=== PATIENT | male | born 1985 | race Caucasian/White ===

== ENCOUNTER 2021-07-08 16:55 | Emergency (ER) | payer OTHER, MEDICAID ==
[~2021-07-08] VITALS: Ht 167.6 cm; Wt 128.4 kg
[2021-07-08 18:35] LABS: BASO # 0.1 x10^3/uL (0.0-0.2); BASO % 1 % (0-3); EOS # 0.3 x10^3/uL (0.0-0.7); EOS % 3 % (0-3); HEMATOCRIT 46.1 % (39.0-53.0); HEMOGLOBIN 15.8 g/dL (13.0-17.5); LYMPH # 1.8 x10^3/uL (1.0-4.8); LYMPH % 16 % (24-48); MEAN CORPUSCULAR HEMOGLOBIN 29 pg (25-35); MEAN CORPUSCULAR HGB CONC 34 g/dL (31-37); MEAN CORPUSCULAR VOLUME 86 fL (79-100); MONO # 0.7 x10^3/uL (0.0-1.1); MONO % 6 % (0-9); NEUT % 73 % (31-73); PLATELET COUNT 329 x10^3/uL (140-400); RED BLOOD COUNT 5.36 x10^6/uL (4.30-5.70); RED CELL DISTRIBUTION WIDTH 13.9 % (11.5-14.5); WHITE BLOOD COUNT 10.9 x10^3/uL (4.0-11.0)
--- NOTE | 2021-07-08 18:54 | RAD ---
INDICATION: Reason: Hypertensive emergency rule out endorgan damage / Spl. Instructions: / History: COMPARISON: None. TECHNIQUE: Axial CT images obtained through the head without intravenous contrast. One or more of the following individualized dose reduction techniques were utilized for this examinat ion: 1. Automated exposure control; 2. Adjustment of the mA and/or kV according to patient size; 3 . Use of iterative reconstruction technique. FINDINGS: No intracranial hemorrhage. No significant midline shift. Ventricles and sulci are unremarkable. No acute osseous abnormality. IMPRESSION: * No acute intracranial hemorrhage. Electronically signed by: David Alberts MD (07/08/2021 6:52 PM) [id number]
[2021-07-08 18:57] LABS: CALCIUM 9.1 mg/dL (8.5-10.1); CREATININE 1.1 mg/dL (0.7-1.3); GFR 76.6; POTASSIUM 4.1 mmol/L (3.5-5.1)
--- NOTE | 2021-07-08 18:59 | RAD ---
XR CHEST 1V History: Reason: Hypertensive emergency rule out endorgan damage / Spl. Instructions: / History: Comparison: None. Findings: No consolidation or pleural effusion. Normal heart size. No pneumothorax. Impression: 1. No acute cardiopulmonary process. Electronically signed by: Neo Osborne DO (07/08/2021 6:56 PM) [facility]
[2021-07-08] MEDS ORDERED: hydrALAZINE 20 MG/ML VIAL. IVP ONE (19:00)
[2021-07-08 19:03] LABS: ALBUMIN 3.9 g/dL (3.4-5.0); ALBUMIN/GLOBULIN RATIO 0.8 (1.0-1.7); TOTAL BILIRUBIN 0.7 mg/dL (0.2-1.0); TOTAL PROTEIN 8.7 g/dL (6.4-8.2)
[2021-07-08 19:43] LABS: HYALINE CASTS, URINE OCCASIONAL /HPF
[2021-07-08 19:44] LABS: BACTERIA,URINE 0 /HPF (0-FEW); RBC,URINE OCC /HPF (0-2); WBC,URINE OCC /HPF (0-4)
[2021-07-08] MEDS ORDERED: LABETALOL 20 MG/4 ML DISP.SYRIN. IVP ONE (20:15)
[2021-07-08 20:31] VITALS: BP 209/94
[2021-07-08] MEDS ORDERED: LISI5TAB15 PO (22:02)
--- NOTE | 2021-07-08 22:02 | PHYS DOC ---
Past Medical History Past Surgical History: No Surgical History Smoking Status: Never Smoker Alcohol Use: None General Adult EDM: Chief Complaint: HYPERTENSION HPI: HPI: Patient is a 36-year-old male who presents to the emergency department sent here by his home health nurse related to a systolic blood pressure of over 200. Patient states he does not have any symptoms, denies headaches, blurred vision, chest pains, increased urinary frequency, denies abdominal pains, nausea, vomiting, diarrhea. Denies syncopal or near syncopal episodes. Patient denies numbness or tingling to his extremities. Patient denies headaches. Patient denies any physical symptoms or complaints. Patient states he is only here because his home health nurse told him to come directly to the emergency department for evaluation. Patient states he is not allergic to any medications, does not take prescription medications at home. Patient denies a history of cigarette smoking, alcohol or illicit drug use. Patient denies a family history of hypertension, diabetes, or sudden cardiac . Review of Systems: Review of Systems: 14 body systems of review of systems have been reviewed. See HPI for pertinent positives and negative responses, otherwise all other systems are negative, nonpertinent or noncontributory. Constitutional: Negative except as outlined in HPI above. Skin: Negative except as outlined in HPI above. Eyes: Negative except as outlined in HPI above. HENT: Negative except as outlined in HPI above. Respiratory: Negative except as outlined in HPI above. Cardiovascular: Negative except as outlined in HPI above. GI: Negative except as outlined in HPI above. : Negative except as outlined in HPI above. Musculoskeletal: Negative except as outlined in HPI above. Integument: Negative except as outlined in HPI above. Neurologic: Negative except as outlined in HPI above. Endocrine: Negative except as outlined in HPI above. Lymphatic: Negative except as outlined in HPI above. Psychiatric: Negative except as outlined in HPI above. Heart Score: C/O Chest Pain: No Risk Factors: Risk Factors: DM, Current or recent (<one month) smoker, HTN, HLP, family history of CAD, obesity. Risk Scores: Score 0 - 3: 2.5% MACE over next 6 weeks - Discharge Home Score 4 - 6: 20.3% MACE over next 6 weeks - Admit for Clinical Observation Score 7 - 10: 72.7% MACE over next 6 weeks - Early Invasive Strategies Current Medications: Current Medications Medications (Trade) Dose Ordered Sig/Jorge Start Time Stop Time Status Last Admin Dose Admin Hydralazine HCl (Apresoline Inj) 10 mg 1X ONCE 07/08/21 19:00 07/08/21 19:01 DC 07/08/21 19:21 10 MG Labetalol HCl (Normodyne Iv Push) 20 mg 1X ONCE 07/08/21 20:15 07/08/21 20:16 DC 07/08/21 20:31 20 MG Allergies: Allergies: Allergies Coded Allergies Type Severity Reaction Last Updated Verified No Known Drug Allergies 07/08/21 No Physical Exam: PE: Constitutional: Well developed, well nourished, no acute distress, non-toxic appearance. 36-year-old male in no apparent distress. HENT: Normocephalic, atraumatic. Eyes: Conjunctiva normal, no discharge. No scleral icterus Neck: Normal range of motion, no stridor. Cardiovascular: No cyanosis appreciated, distal cap refill less than 2 seconds. Regular rate and rhythm, heart sounds S1-S2 to auscultation. Lungs & Thorax: Patient is in no respiratory distress, no audible adventitious lung sounds appreciated. Lung sounds are clear to auscultation all lung valenzuela, normal work of breathing. Abdomen: Nontender, no abnormalities noted. Skin: Warm, dry, no erythema, no rash. Back: No tenderness, no deformities. Extremities: No tenderness, no cyanosis, no clubbing, ROM intact, no edema. Neurologic: Alert and oriented X 3, normal motor function, normal sensory function, no focal deficits noted. Psychologic: Affect normal, judgement normal, mood normal. Current Patient Data: Labs: Laboratory Tests Test 07/08/21 18:25 07/08/21 19:16 White Blood Count 10.9 x10^3/uL (4.0-11.0) Red Blood Count 5.36 x10^6/uL (4.30-5.70) Hemoglobin 15.8 g/dL (13.0-17.5) Hematocrit 46.1 % (39.0-53.0) Mean Corpuscular Volume 86 fL (79-100) Mean Corpuscular Hemoglobin 29 pg (25-35) Mean Corpuscular Hemoglobin Concent 34 g/dL (31-37) Red Cell Distribution Width 13.9 % (11.5-14.5) Platelet Count 329 x10^3/uL (140-400) Neutrophils (%) (Auto) 73 % (31-73) Lymphocytes (%) (Auto) 16 % (24-48) L Monocytes (%) (Auto) 6 % (0-9) Eosinophils (%) (Auto) 3 % (0-3) Basophils (%) (Auto) 1 % (0-3) Neutrophils # (Auto) 8.0 x10^3/uL (1.8-7.7) H Lymphocytes # (Auto) 1.8 x10^3/uL (1.0-4.8) Monocytes # (Auto) 0.7 x10^3/uL (0.0-1.1) Eosinophils # (Auto) 0.3 x10^3/uL (0.0-0.7) Basophils # (Auto) 0.1 x10^3/uL (0.0-0.2) Sodium Level 137 mmol/L (136-145) Potassium Level 4.1 mmol/L (3.5-5.1) Chloride Level 102 mmol/L (98-107) Carbon Dioxide Level 26 mmol/L (21-32) Anion Gap 9 (6-14) Blood Urea Nitrogen 15 mg/dL (8-26) Creatinine 1.1 mg/dL (0.7-1.3) Estimated GFR (Cockcroft-Gault) 76.6 BUN/Creatinine Ratio 14 (6-20) Glucose Level 91 mg/dL (70-99) Calcium Level 9.1 mg/dL (8.5-10.1) Total Bilirubin 0.7 mg/dL (0.2-1.0) Aspartate Amino Transferase (AST) 21 U/L (15-37) Alanine Aminotransferase (ALT) 34 U/L (16-63) Alkaline Phosphatase 68 U/L (46-116) Troponin I High Sensitivity 16 ng/L (4-75) ZS-Fze-P-Type Natriuretic Peptide 128 pg/mL (0-124) H Total Protein 8.7 g/dL (6.4-8.2) H Albumin 3.9 g/dL (3.4-5.0) Albumin/Globulin Ratio 0.8 (1.0-1.7) L Urine Collection Type Unknown Urine Color (Auto) Yellow Urine Turbidity Clear Urine pH (Auto) 5.5 (<5.0-8.0) Urine Specific [place] 1.029 (1.000-1.030) Urine Protein (Auto) Negative mg/dL (Negative) Urine Glucose (Auto)(UA) Negative mg/dL (Negative) Urine Ketones (Auto) Negative mg/dL (Negative) Urine Blood (Auto) Negative (Negative) Urine Nitrite Negative (Negative) Urine Bilirubin (Auto) Negative (Negative) Urine Urobilinogen (Auto) Normal mg/dL (Normal) Urine Leukocyte Esterase (Auto) Negative (Negative) Urine RBC Occ /HPF (0-2) Urine WBC Occ /HPF (0-4) Urine Squamous Epithelial Cells Few /LPF Urine Bacteria 0 /HPF (0-FEW) Urine Hyaline Casts Occasional /HPF Urine Mucus Marked /LPF Laboratory Tests 07/08/21 18:25 Laboratory Tests 07/08/21 18:25 Vital Signs: Vital Signs Date Time Temp Pulse Resp B/P (MAP) Pulse Ox O2 Delivery O2 Flow Rate FiO2 07/08/21 20:31 95 209/94 07/08/21 17:05 98.9 18 96 Room Air 98.9 EKG: EKG: EKG performed at 1857 by ED nursing staff shows a normal sinus rhythm without other ectopy, heart rate 78 bpm, OR interval point 164, QTc interval 0.416, no acute STEMI, no ACS, no acute ischemia appreciated, EKG interpreted by ED attending physician Dr. Reed. Radiology/Procedures: Radiology/Procedures: REASON: Hypertensive emergency rule out endorgan damage PROCEDURE: CT HEAD WO CONTRAST INDICATION: Reason: Hypertensive emergency rule out endorgan damage / Spl. Instructions: / History: COMPARISON: None. TECHNIQUE: Axial CT images obtained through the head without intravenous contrast. One or more of the following individualized dose reduction techniques were utilized for this examination: 1. Automated exposure control; 2. Adjustment of the mA and/or kV according to patient size; 3. Use of iterative reconstruction technique. FINDINGS: No intracranial hemorrhage. No significant midline shift. Ventricles and sulci are unremarkable. No acute osseous abnormality. IMPRESSION: * No acute intracranial hemorrhage. Electronically signed by: David Alberts MD (07/08/2021 6:52 PM) [id number] REASON: Hypertensive emergency rule out endorgan damage PROCEDURE: CHEST AP ONLY XR CHEST 1V History: Reason: Hypertensive emergency rule out endorgan damage / Spl. Instructions: / History: Comparison: None. Findings: No consolidation or pleural effusion. Normal heart size. No pneumothorax. Impression: 1. No acute cardiopulmonary process. Electronically signed by: Neo Osborne DO (07/08/2021 6:56 PM) [facility] Course & Med Decision Making: Course & Med Decision Making Pertinent Labs and Imaging studies reviewed. (See chart for details) 36-year-old male, vital signs reviewed, presents emergency department concerning hypertensive episode at home. Patient is symptom free. Patient's physical examination is unremarkable. The patient's triage blood pressure is 220/120, I confirmed right upper extremity 189/119, left upper extremity 211/121. Patient does not have a primary care provider, states he usually goes to urgent care for any healthcare needs. States he does not have money to spend on medications. Patient does not exhibit any concerning symptoms of endorgan damage however I am concerned patient does not have close medical follow-up, I also have concerns patient will not obtain any prescribed medications for hypertension control related to his statements of not having money to afford medications, will order head CT without contrast, chest x-ray, twelve-lead EKG, CBC, CMP, urinalysis assay, high-sensitivity troponin I, NT proBNP to rule out endorgan damage. Will give hydralazine for hypertensive presentation. Upon reevaluation of the patient, patient's blood pressure is 181/117, continues to be symptom-free, will order labetalol IV injection. The patient's urine is not infected, there is no hematuria or proteinuria, the patient's EKG as well as NT proBNP and high-sensitivity troponin I are nonconcerning, CT head is nonconcerning, CBC and CMP is nonconcerning, there is no evidence of endorgan damage with extensive ED work-up. Upon reevaluation of the patient, patient continues to be in no apparent distre ss, nontoxic in appearance, blood pressure is 190/93 of left upper extremity. Discussed findings with patient, will start on lisinopril 10 mg daily, reviewed medication safety and side effects, strict follow-up with primary care physician this week, will give information for area healthcare providers and healthcare clinics for patient to choose a primary care provider. Discussed with patient the importance of maintaining blood pressure control. Discussed return to ER precautions and concerns, patient gave verbal understanding of and is amenable to ED discharge planning. 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 Discussed with the patient all findings and diagnostic testing as well as the need to follow-up with their primary care provider for further evaluation and treatment or return to the ED if any new or worsening symptoms. Strict return precautions were also discussed at length, the patient voiced understanding and agreement with the discharge planning. The patient was nontoxic in appearance, in no apparent distress, and hemodynamically stable at the time of disposition. Dragon Disclaimer: CitySourced Disclaimer: This electronic medical record was generated, in whole or in part, using a voice recognition dictation system. Departure Departure Impression: Primary Impression: Hypertensive urgency Disposition: HOME / SELF CARE / HOMELESS Condition: GOOD Referrals: NO PCP (PCP) Patient Instructions: Hypertension Additional Instructions: You were seen today in the emergency department for high blood pressure. An extensive work-up was performed today in the emergency department to ensure there was no endorgan damage. The x-ray imaging, CT imaging, and lab work did not show any concerning signs of organ damage. You were given blood pressure medications in the emergency department to include hydralazine, and labetalol. Your blood pressure did reduce satisfactorily however as we discussed I have st arting you on a blood pressure medication. Please take once a day in the morning, it is imperative that you see a primary care physician to manage ongoing high blood pressure medications and blood pressure management. I have attached a list of area healthcare providers for you to follow-up with, please call Sunday for the soonest appointment. Thank you for visiting our Emergency Department. It was a pleasure taking care of you today in the emergency department and we appreciate you trusting us with your care. If any additional problems come up don't hesitate to return to visit us. Please follow up with your primary care provider so they can plan additional care if needed and know about the problem that you had. If symptoms worsen come back to the Emergency Department. Any concerning symptoms that start such as chest pain, shortness of air, weakness or numbness on one side of the body, running high fevers or any other concerning symptoms return to the ER. [facility] [address] [place] [address] [facility] [address] [place] [address] [facility] [address] [facility] [place] [address] [facility] [address] [place] [address] [facility] [address] [place] [address] [address] [place] [address] [facility] [address] [place] [address] [facility] [address] [place] [address] [facility] [address] [place] [address] [facility] [address] [place] [address] Scripts Lisinopril (LISINOPRIL) 5 Mg Tablet 1 TAB PO DAILY for HTN, #30 TAB 5 Refills Prov: SUSHANT DAI APRN 07/08/21 SUSHANT DAI APRN Jul 08, 2021 22:02
--- NOTE | 2021-07-09 04:39 | EKG ---
[facility] [address] [place] [address] Test Date: 2021-07-08 Test Time: 18:57:41 Pat Name: DEX L[address] Department: Room: Gender: M Insurance Advisor: : [id number] Requested By: SUSHANT DAI Order Number: [id number] Reading MD: Juan Blue Measurements Intervals [place] Rate: 78 P: 24 CO: 164 QRS: -11 QRSD: 78 T: 26 QT: 362 QTc: 416 Interpretive Statements SINUS RHYTHM LEFTWARD AXIS MILD NON SPECIFIC ST CHANGES Electronically Signed On 07-13-2021 17:50:18 CDT by Juan Blue
== END 2021-07-08 22:05 | disposition home or self-care (01) ==
LOC: ER 16:55
DX: I16.0 Hypertensive urgency (principal)
CPT/HCPCS: 36415; 70450; 71045; 80053; 81001; 83880; 84484; 85025; 93005; 96374; 96375; 99285; J0360; J3490